=== PATIENT | female | born 1940 | race Caucasian/White ===

== ENCOUNTER → 2017-04-15 | Outpatient (CLI) | payer OTHER | LOC: FCPNEURO 23:20 | PROVIDERS: ATTEND Psychiatry & Neurology Sleep Medicine | DX: G47.33 Obstructive sleep apnea (adult) (pediatric) (principal) ==

== ENCOUNTER → 2017-06-23 | Outpatient (CLI) | payer OTHER | LOC: FCPNEURO 23:43 | PROVIDERS: ATTEND Psychiatry & Neurology Sleep Medicine | DX: G47.33 Obstructive sleep apnea (adult) (pediatric) (principal); G47.39 Other sleep apnea ==

== ENCOUNTER 2017-07-04 11:57 | Emergency (ER) | payer OTHER ==
[2017-07-04 12:06] VITALS: BP 143/82; PULSE 85; RESP 20; TEMP 97.5; O2SAT 95
--- NOTE | 2017-07-04 12:41 | EDPHY ---
H & P Time Seen by Provider: 07/04/17 12:13 HPI/ROS: CHIEF COMPLAINT: Cough, congestion HISTORY OF PRESENT ILLNESS: A 37-year-old female with a history of breast cancer presents with cough and congestion. Onset of sore throat and runny dose 4 days ago. Associated with a moist cough and excessive fatigue. She has been mainly lying in bed because of lack of energy. The cough keeps her up at night and sometimes makes her feel slightly short of breath. Similar to prior episodes of pneumonia. Previously treated with zithromax successfully. No shortness of breath with exertion. No myalgias or fever. Her grandchildren live in her home and recently were ill with similar symptoms. She has not received a flu vaccination this year. REVIEW OF SYSTEMS: Constitutional: No fever, no chills Eyes: No visual changes Cardiac: No chest pain Gastrointestinal: No nausea, no vomiting, no abdominal pain Genitourinary: No dysuria Musculoskeletal: No myalgias Skin: No rash Neurological: No headache Psychiatric: No depression Past Medical/Surgical History: Breast cancer Hyperparathyroidism Pneumonia Social History: PCP: Dr. Garvey Smoking Status: Former smoker Physical Exam: General Appearance: Alert, pleasant, nontoxic Eyes: Pupils equal and round, no conjunctival pallor or injection ENT, Mouth: Mucous membranes moist, mild pharyngeal erythema Neck: Normal inspection Respiratory: Lungs are clear to auscultation Cardiovascular: Regular rate and rhythm Gastrointestinal: Abdomen is soft and nontender Neurological: A&O, nonfocal, normal gait Skin: Warm and dry Extremities: Normal inspection Psychiatric: Mood and affect normal Constitutional: Initial Vital Signs Temperature (C) 36.4 C 07/04/17 12:02 Heart Rate 85 07/04/17 12:02 Respiratory Rate 20 07/04/17 12:02 Blood Pressure 143/82 H 07/04/17 12:02 O2 Sat (%) 95 07/04/17 12:02 O2 Delivery Mode Room Air Allergies/Adverse Reactions: No Known Allergies Allergy (Verified 07/04/17 12:06) Home Medications: Medication Instructions Recorded Calcitriol [Calcitriol (RX)] 06/29/12 Aspirin 81mg (OTC) 10/04/13 Tamoxifen Citrate 10/04/13 Alis Allergy 07/04/17 Azithromycin [Zithromax] 250 mg PO DAILY #6 tab 07/04/17 Losartan Potassium 07/04/17 Singulair 07/04/17 Vitamin B12 07/04/17 Vitamin D3 07/04/17 Medical Decision Making - Diagnostics Imaging Results: Chest x-ray discussed with Dr. Garsia reveals a possible infiltrate anterior to the heart on the lateral view. ED Course/Re-evaluation: Clinical presentation c/w pneumonia. Well-appearing pt with normal vital signs and oxygen saturation. CXR reveals a possible infiltrate. d/w pt, aware of need to f/u for repeat CXR. Has appt with Dr. Orellana in July and will d/w him. Return precautions given. Follow up with PCP on Friday if not improved. Departure - Departure Disposition: Home, Routine, Self-Care Clinical Impression: Acute bronchitis Qualifiers: Bronchitis organism: unspecified organism Qualified Code(s): J20.9 - Acute bronchitis, unspecified Condition: Good Instructions: Acute Bronchitis (ED) Additional Instructions: As discussed, you will need to have a repeat CXR when you are feeling better (3- 4 weeks). Referrals: Ema Garvey MD [Primary Care Provider] - As per Instructions (Follow-up on Friday if you do not feel better. Return to the ED if you are feeling worse.) Prescriptions: Azithromycin [Zithromax] 250 mg PO DAILY #6 tab
== END 2017-07-04 12:51 | disposition home or self-care (01) ==
LOC: CED 11:57
DX: J20.9 Acute bronchitis, unspecified (principal); Z79.82 Long term (current) use of aspirin; Z85.3 Personal history of malignant neoplasm of breast; Z87.891 Personal history of nicotine dependence
CPT/HCPCS: 71020-PO

== ENCOUNTER → 2017-07-29 | Outpatient (CLI) | payer OTHER | LOC: CIMAGING 15:55 | PROVIDERS: ATTEND Internal Medicine Hematology & Oncology | DX: Z09 Encounter for follow-up examination after completed treatment for conditions other than malignant neoplasm (principal); Z87.01 Personal history of pneumonia (recurrent) | CPT/HCPCS: 71046-PO ==

== ENCOUNTER → 2017-08-18 | Outpatient (CLI) | payer OTHER | LOC: FCPNEURO 21:00 | PROVIDERS: ATTEND Psychiatry & Neurology Sleep Medicine | DX: G47.31 Primary central sleep apnea (principal) ==

== ENCOUNTER → 2018-04-20 | Outpatient (CLI) | payer OTHER | LOC: BMCIMAGING 10:38 | PROVIDERS: ATTEND Internal Medicine | DX: M81.0 Age-related osteoporosis without current pathological fracture (principal) ==

== ENCOUNTER → 2018-07-13 | Outpatient (CLI) | payer OTHER | LOC: BMCIMAGING 15:05 | PROVIDERS: ATTEND Internal Medicine | DX: M17.11 Unilateral primary osteoarthritis, right knee (principal) ==